=== PATIENT | female | born 1955 | race Caucasian/White ===

== ENCOUNTER 2024-01-06 03:46 | Emergency (ER) | payer MEDICARE, SELFPAY ==
--- NOTE | ~2024-01-06 | XR_ITS ---
Portable chest x-ray Comparison: None Clinical History: Hemoptysis Findings: Lungs are clear, without focal consolidation or definite pleural effusion. Cardiomediasti nal silhouette is prominent. Bones and soft tissues are unremarkable. Impression: Clear lungs. Reviewed, dictated and finalized at location . Impression: Clear lungs.
[2024-01-06 03:47] VITALS: BP 153/93; PULSE 85; RESP 16; TEMP 36.9; O2SAT 99
--- NOTE | 2024-01-06 04:04 | ED.GENADULT ---
HPI - General Adult General Chief complaint: Unspecified Stated complaint: coughing up blood Time Seen by Provider: 01/06/24 03:52 History of Present Illness HPI narrative: this is a 69-year-old female presenting with chief complaint of coughing up blood. Patient has had cough congestion sore throat for the last 2 days. This morning she woke up with mucus in her throat. When she was able to cough it up it was red. Patient came to hospital for evaluation. Patient denies chest pain or difficulty breathing. No lower extremity edema or history of blood clots. No known malignancy. No fever chills nausea vomiting or diarrhea. Related Data Home Medications Medication Instructions Recorded Confirmed No Home Medications 09/01/19 09/01/19 Allergies Allergy/AdvReac Type Severity Reaction Status Date / Time No Known Allergies Allergy Mild Unverified 12/19/10 08:12 [facility] Past Medical History Medical History Anxiety CAD (coronary artery disease) HTN (hypertension) Exam Narrative: APPEARANCE: well-appearing Head: mild erythema posterior oropharynx, no signs of bleeding EYES: EOMI, NOSE: Atraumatic NECK: Trachea midline RESPIRATORY: No increased rate of breathing , CTAB CARDIOVASCULAR: RRR, no peripheral edema ABDOMINAL: Non-distended MUSCULOSKELETAl: No obvious deformities NEURO: Alert. Moving 4/4 extremities SKIN:: Warm, dry. Normal color PSYCHIATRIC: Normal affect Course Vital Signs Vital signs: Vital Signs Temperature 98.4 F 01/06/24 03:47 Pulse Rate 85 01/06/24 03:47 Respiratory Rate 16 01/06/24 03:47 Blood Pressure 153/93 H 01/06/24 03:47 Pulse Oximetry 99 01/06/24 03:47 Oxygen Delivery Room Air 01/06/24 03:47 Temperature 98.4 F 01/06/24 03:47 Pulse Rate 77 01/06/24 04:19 Respiratory Rate 15 01/06/24 04:19 Blood Pressure 155/74 H 01/06/24 04:19 Pulse Oximetry 98 01/06/24 04:19 Oxygen Delivery Room Air 01/06/24 03:47 Medical Decision Making [facility] Narrative Medical decision making narrative: -Course: 69-year-old female presenting with hemoptysis. workup negative including troponin D-dimer and BNP, EKG. patient has not had any more hemoptysis while in the emergency department. on re-evaluation vital signs are stable and she is well appearing with no exam findings. hemoptysis is likely from her sinus congestion /pharyngitis/bronchitis. Patient will be discharged with primary care follow-up -DDX includes but is not limited to: Bronchitis, pulmonary embolism pneumonia, strep throat, -Co-morbidities complicating care: CAD, hypertension -Independent interpretation of studies: CBC normal. BMP normal. Troponin undetectable. D-dimer 0.44, BNP 292, viral swabs strep negative chest x-ray showed atelectasis in the right lower lobe. No fever/white count to indicate pna. Independent EKG interpretation: Rhythm [sinus], Rate [70], [place] -[normal], [place] -[normal], QRS [narrow], QTC [normal], T waves -[negative for concerning inversions], ST Segments - [Negative for concerning elevations] Final interpretations: [Normal Sinus Rhythm] -Shared decision making / Disposition: discharged w/ primary care Vital Signs Vital Signs: Vital Signs Temperature 98.4 F 01/06/24 03:47 Pulse Rate 85 01/06/24 03:47 Respiratory Rate 16 01/06/24 03:47 Blood Pressure 153/93 H 01/06/24 03:47 Pulse Oximetry 99 01/06/24 03:47 Oxygen Delivery Room Air 01/06/24 03:47 Temperature 98.4 F 01/06/24 03:47 Pulse Rate 77 01/06/24 04:19 Respiratory Rate 15 01/06/24 04:19 Blood Pressure 155/74 H 01/06/24 04:19 Pulse Oximetry 98 01/06/24 04:19 Oxygen Delivery Room Air 01/06/24 03:47 Lab Data 01/06/24 04:17 01/06/24 04:46 Labs: Lab Results 01/06/24 01/06/24 01/06/24 Range/Units 04:17 04:23 04:45 WBC 6.1 (4.5-10.0) K/mm3 RBC 4.20 (4.2-5.4)
--- NOTE | 2024-01-06 04:08 | ECG_ITS ---
Measurements Intervals [place] Rate: 70 P: 60 LA: 168 QRS: 37 QRSD: 88 T: 27 QT: 395 QTc: 427 Interpretive Statements SINUS RHYTHM LOW QRS VOLTAGE IN PRECORDIAL LEADS BASELINE ARTIFACT- I, II, III, AVR BORDERLINE ECG NO PREVIOUS ECG AVAILABLE FOR COMPARISON Electronically Signed On 01-06-2024 6:37:05 CDT by Trung Monaco D.O.
[2024-01-06 04:19] VITALS: BP 155/74; PULSE 77; RESP 15; O2SAT 98
[2024-01-06 04:44] LABS: Basophils Percent Auto 0.5 % (0.2-1.2); Eosinophils Absolute Auto 0.3 K/mm3 (0-0.3); Eosinophils Percent Auto 4.6 % (0-4.4); Hematocrit 37.6 % (37.0-47.0); Hemoglobin 12.1 g/dL (12.0-15.0); Immature Granulocyte Absolute 0.04 K/mm3 (0.00-0.031); Immature Granulocyte Percent A 0.7 % (0-0.5); Lymphocytes Absolute Auto 1.71 K/mm3 (0.9-3.2); Lymphocytes Percent Auto 27.9 % (18.3-44.2); Mean Corpuscular HGB Conc 32.2 g/dl (32-36); Mean Corpuscular Hemoglobin 28.8 pg (26-34); Mean Corpuscular Volume 89.5 fl (80-100); Mean Platelet Volume 9.7 fl (7.4-10.4); Monocytes Absolute Auto 0.6 K/mm3 (0.1-0.6); Monocytes Percent Auto 9.8 % (2.6-8.5); Neutrophils Absolute Auto 3.5 K/mm3 (1.3-6.7); Neutrophils Percent Auto 56.5 % (45.5-73.1); Platelet Count Result 316 k/mm3 (150-375); Red Cell Distribution Width 13.4 % (11.5-14.5); White Blood Count 6.1 K/mm3 (4.5-10.0)
[2024-01-06 04:53] LABS: Strep Group A RT-PCR NOT DETECTED (Negative)
[2024-01-06 05:04] LABS: Influenza A QL RT-PCR Negative (Negative); Influenza B QL RT-PCR Negative (Negative); RSV RNA, RT-PCR Negative (Negative); SARS-CoV-2 RNA PCR Negative (Negative)
[2024-01-06 05:09] LABS: D Dimer 0.44 ug/mL (<0.48)
[2024-01-06 05:11] LABS: Alanine Aminotransferase 21 U/L (6-35); Albumin Level 4.1 g/dL (3.5-5.1); Alkaline Phosphatase 85 U/L (38-126); Anion Gap 4 mmol/L (8-16); Aspartate Amino Transferase 28 U/L (14-36); Bilirubin,Total 0.4 mg/dL (0.2-1.3); Blood Urea Nitrogen 18 mg/dL (7-17); Calcium 8.9 mg/dL (8.4-10.2); Carbon Dioxide 26 mmol/L (22-30); Chloride 105 mmol/L (98-107); Estimated CRCL calculation 104 ml/min; Estimated Glomerular Filt Rate > 60; Glucose 101 mg/dL (65-110); Sodium 135 mmol/L (137-145)
[2024-01-06 05:20] LABS: NT Pro B Type Natriuretic Pept 292 pg/mL (19.9-100)
[2024-01-06 05:23] LABS: Troponin I < 0.012 ng/mL (0.000-0.034)
[2024-01-06 06:00] VITALS: BP 149/66; PULSE 67; RESP 16; O2SAT 98
== END 2024-01-06 06:00 | disposition home or self-care (01) ==
PROVIDERS: Emergency Provider Emergency Medicine; PCP Physician Assistant
DX: B34.9 Viral infection, unspecified (principal); R04.2 Hemoptysis; Z20.822 Contact with and (suspected) exposure to COVID-19; I25.10 Atherosclerotic heart disease of native coronary artery without angina pectoris; I10 Essential (primary) hypertension; R94.31 Abnormal electrocardiogram [ECG] [EKG]
CPT/HCPCS: 36415; 71045; 80053; 83880; 84484; 85025; 85380; 87637; 87651; 93005; 99284

== ENCOUNTER 2024-01-07 09:30 | Emergency (ER) | payer MEDICARE, SELFPAY ==
--- NOTE | ~2024-01-07 | CT_ITS ---
Clinical Indication: Cough, hemoptysis CT Scan of the Chest with Contrast: Technique: Contiguous sections were acquired throughout the chest after intravenous administration of 100 cc of Omnipaque 350. Dose reduction technique was used on this scan by utilizing automated expos ure control and iterative reconstruction technique. The dose-length product (DLP) was 793.47 mGy-cm. Findings: Thyroid gland probably diffusely enlarged but homogeneous. There is no evidence of any significant mediastinal, hilar or axillary lymphadenopathy. There is no f illing defect in the pulmonary arterial tree to suggest pulmonary embolus. There is no evidence of ao rtic dissection or aneurysm. There is no evidence of pleural or pericardial effusion. There is minimal patchy ground glass opacity anteromedial left upper lobe. Images through the upper abdomen reveal no abnormalities. Impression: No evidence of pulmonary embolus, aortic dissection, or aortic aneurysm. Minimal patchy ground glass opacity anteromedial left upper lobe. Focal pneumonia is a consideration. Probable enlarged, homogeneous thyroid gland. Correlate with thyroid function tests as indicated. Reviewed, dictated and finalized at [facility]. Impression: No evidence of pulmonary embolus, aortic dissection, or aortic aneurysm. Minimal patchy ground glass opacity anteromedial left upper lobe. Focal pneumon ia is a consideration. Probable enlarged, homogeneous thyroid gland. Correlate with thyroid function t ests as indicated.
[2024-01-07 09:34] VITALS: BP 181/85; PULSE 94; RESP 18; TEMP 36.3; O2SAT 99
[2024-01-07 11:30] VITALS: BP 145/64; PULSE 68; RESP 22; O2SAT 99
--- NOTE | 2024-01-07 11:32 | ECG_ITS ---
Measurements Intervals [place] Rate: 68 P: 60 LA: 163 QRS: 38 QRSD: 91 T: 26 QT: 388 QTc: 413 Interpretive Statements SINUS RHYTHM WITH SINUS ARRHYTHMIA LOW QRS VOLTAGE IN PRECORDIAL LEADS BASELINE ARTIFACT- I, II, AVR, AVL, V1, V4, V6 BORDERLINE ECG COMPARED TO ECG 01/06/2024 04:23:24 SINUS ARRHYTHMIA NOW PRESENT Electronically Signed On 01-07-2024 11:59:55 CDT by Trung Monaco D.O.
--- NOTE | 2024-01-07 11:53 | ED.GENADULT ---
HPI - General Adult General Chief complaint: Nausea/Vomiting/Diarrhea Stated complaint: throwing up blood Time Seen by Provider: 01/07/24 09:40 Source: patient and old records reviewed Mode of arrival: ambulatory Limitations: no limitations History of Present Illness HPI narrative: Patient is a 69-year-old female who presents the ED with report of hemoptysis. Patient reports she has had a deep cough for the last few weeks. Yesterday she developed hemoptysis and was seen in the ED. workup was fairly unremarkable. Troponin and D-dimer were within normal limits. Viral swabs were negative. Chest x-ray was negative. Patient then developed a more significant episode of hemoptysis this morning, which prompted her presentation. She denies chest pain. She denies shortness of breath. Denies dyspnea with exertion. Denies lower extremity pain or swelling. Denies dizziness or lightheadedness. She is not on any blood thinners. Related Data Allergies Allergy/AdvReac Type Severity Reaction Status Date / Time No Known Allergies Allergy Mild Verified 01/07/24 09:31 Review of Systems Review of Systems: CONSTITUTIONAL: Denies fever, chills, or sweats. CARDIOVASCULAR: Denies chest pain, palpitations, or edema. RESPIRATORY: See HPI. GASTROINTESTINAL: Denies abdominal pain, nausea, vomiting. NEUROLOGIC: Denies lightheadedness, dizziness, numbness, or weakness. All systems reviewed & are unremarkable except as noted in HPI and below PMFSH Past Medical History Medical History Anxiety CAD (coronary artery disease) HTN (hypertension) Exam Narrative: GENERAL: Well appearing, morbidly obese with BMI of 47.7, non-toxic, in no acute distress. HEAD: Normocephalic, atraumatic. RESPIRATORY: Airway patent, respirations nonlabored. Clear to auscultation bilaterally, no rales, rhonchi, wheezing. no focal lung sounds. CARDIOVASCULAR: Regular rate and rhythm without murmurs, rubs, or gallops. MUSCULOSKELETAL: Moves all extremities. No gross deformities. SKIN: Warm, dry, normal color. NEURO: A&O X3. Speech clear. Cranial nerves II-XII grossly intact. Steady gait. No ataxic movements. PSYCHIATRIC: Appropriate mood and affect. Normal interaction. Course Vital Signs Vital signs: Vital Signs Temperature 97.4 F L 01/07/24 09:34 Pulse Rate 94 01/07/24 09:34 Respiratory Rate 18 01/07/24 09:34 Blood Pressure 181/85 H 01/07/24 09:34 Pulse Oximetry 99 01/07/24 09:34 Oxygen Delivery Room Air 01/07/24 09:34 Temperature 97.4 F L 01/07/24 09:34 Pulse Rate 75 01/07/24 12:00 Respiratory Rate 15 01/07/24 12:00 Blood Pressure 154/88 H 01/07/24 12:00 Pulse Oximetry 100 01/07/24 12:00 Oxygen Delivery Room Air 01/07/24 09:34 Medical Decision Making MDM Narrative Medical decision making narrative: patient presented to ED with recurrent episode of hemoptysis, evaluated in the ED yesterday with essentially negative workup. Vital signs are stable today. Oxygen stable on room air. Patient in no acute distress. laboratory studies unremarkable. No leukocytosis. Stable H& H. Electrolytes within normal limits. Troponin undetectable. BNP minimally elevated at 244. Patient does not appear fluid overloaded. CTA of chest obtained and showing foci of pneumonia in left upper lobe. No evidence of PE or aortic etiology. I feel this does fit with patient's clinical picture and can explain hemoptysis. discussed imaging findings with patient, discharged home on oral antibiotics. She is in agreement with this plan and feels comfortable w/ discharge home. I advised close follow-up with PCP for further evaluation. Given strict return precautions. She agrees with plan. Discharged in stable condition. Vital stable at time of D/C. Medical Records Medical records reviewed: Yes I reviewed the external patient's medical records. Vital Signs Vital Signs:
[2024-01-07 11:54] LABS: Basophils Percent Auto 0.5 % (0.2-1.2); Eosinophils Absolute Auto 0.2 K/mm3 (0-0.3); Eosinophils Percent Auto 3.7 % (0-4.4); Hematocrit 41.3 % (37.0-47.0); Hemoglobin 13.2 g/dL (12.0-15.0); Immature Granulocyte Absolute 0.02 K/mm3 (0.00-0.031); Immature Granulocyte Percent A 0.3 % (0-0.5); Lymphocytes Absolute Auto 1.66 K/mm3 (0.9-3.2); Lymphocytes Percent Auto 26.6 % (18.3-44.2); Mean Corpuscular Hemoglobin 28.9 pg (26-34); Mean Corpuscular Volume 90.6 fl (80-100); Mean Platelet Volume 10.2 fl (7.4-10.4); Monocytes Absolute Auto 0.5 K/mm3 (0.1-0.6); Monocytes Percent Auto 8.6 % (2.6-8.5); Neutrophils Absolute Auto 3.8 K/mm3 (1.3-6.7); Neutrophils Percent Auto 60.3 % (45.5-73.1); Platelet Count Result 340 k/mm3 (150-375); Red Blood Count 4.56 M/mm3 (4.2-5.4); Red Cell Distribution Width 13.5 % (11.5-14.5); White Blood Count 6.3 K/mm3 (4.5-10.0)
[2024-01-07 12:00] VITALS: BP 154/88; PULSE 75; RESP 15; O2SAT 100
[2024-01-07 12:06] LABS: Alanine Aminotransferase 23 U/L (6-35); Albumin Level 4.6 g/dL (3.5-5.1); Alkaline Phosphatase 85 U/L (38-126); Anion Gap 6 mmol/L (8-16); Aspartate Amino Transferase 33 U/L (14-36); Bilirubin,Total 0.5 mg/dL (0.2-1.3); Blood Urea Nitrogen 14 mg/dL (7-17); Calcium 9.6 mg/dL (8.4-10.2); Carbon Dioxide 26 mmol/L (22-30); Chloride 104 mmol/L (98-107); Estimated CRCL calculation 104 ml/min; Estimated Glomerular Filt Rate > 60; Glucose 92 mg/dL (65-110); Potassium 4.1 mmol/L (3.4-5.0); Sodium 136 mmol/L (137-145)
[2024-01-07 12:18] LABS: NT Pro B Type Natriuretic Pept 244 pg/mL (19.9-100); Troponin I < 0.012 ng/mL (0.000-0.034)
[2024-01-07 12:48] LABS: INR 0.9; Prothrombin Time 12.8 Seconds (11.1-14.7)
[2024-01-07 12:57] LABS: Partial Thromboplastin Time 28.6 Seconds (22.3-36.8)
== END 2024-01-07 13:38 | disposition home or self-care (01) ==
PROVIDERS: Emergency Provider Physician Assistant; PCP Physician Assistant
DX: J18.9 Pneumonia, unspecified organism (principal); R04.2 Hemoptysis; I25.10 Atherosclerotic heart disease of native coronary artery without angina pectoris; I10 Essential (primary) hypertension; R94.31 Abnormal electrocardiogram [ECG] [EKG]
CPT/HCPCS: 36415; 71275; 80053; 83880; 84484; 85025; 85610; 85730; 93005; 99284; Q9967

== ENCOUNTER 2025-05-29 13:42 | Emergency (ER) | payer MEDICARE, SELFPAY ==
--- NOTE | ~2025-05-29 | CT_ITS ---
EXAMINATION: CT brain wo con DATE: 05/29/2025 14:10 INDICATION: Severe headache TECHNIQUE: Computed tomography (CT) of the head was performed without intravenous contrast. Sagittal and coronal reconstructions were performed. The mA was adjusted according to patient size. Iterative reconstruction technique was employed. The dose-length product was 605.33 mGy-cm. COMPARISON: None FINDINGS: No acute intracranial hemorrhage, acute infarction or abnormal extra axial fluid collection. There is mild scattered white matter hypoattenuation consistent with chronic small vessel ischemic disease. Ventricles are normal and symmetric. No mass/mass effect. Changes of bilateral intraocular lens repla cement. The orbits and mastoid air cells are normal. Mild mucoperiosteal thickening the bilateral eth moid sinuses IMPRESSION: 1. Normal aging brain. No acute intracranial process. Reviewed, dictated and finalized at location A.
[2025-05-29 13:49] VITALS: BP 186/75; PULSE 77; RESP 16; TEMP 36.4; O2SAT 98
--- OUTSIDE RECORDS SUMMARY | 2025-05-29 14:03 | XMS_ITS | Clinical Summary ---
Author Organization [facility] Address [address] [place] [address] Care Team Providers Care Renal Medicine Specialist Name Role Phone Corrine Aguilar Primary Care Pr ovider Allergies No known active allergies Medications diphenoxylate-a tropine (LOMOTIL) 2.5-0.025 mg per tabletIndicatio ns:diarrhea Take 1 tablet by mouth 4 (four) times a day as needed for diarrhea 30 tablet 9 Active escitalopram (LEXAPRO) 20 mg tablet Take 10 mg by mouth daily Active ALPRAZolam (XANAX) 0.5 mg tablet Take 0.5 mg by mouth 2 (two) times a day as needed for anxiety Active aspirin 81 mg chewable tablet Take 1 tablet (81 mg total) by mouth daily 30 tablet 2 Active atorvastatin (LIPITOR) 80 mg tablet Take 1 tablet (80 mg total) by mouth daily 30 tablet 2 Active Additional Information Patient taking differently:80 mg oral Daily,Pt is taking 40 mg every other day, Reported on 06/17/2022 nitroglycerin (NITROSTAT) 0.[address] 1 tablet (0.4 mg total) under the tongue every 5 (five) minutes as needed for chest pain 30 tablet 2 Active ticagrelor (BRILINTA) 90 mg tablet Take 1 tablet (90 mg total) by mouth 2 (two) times a day 60 tablet [address] (PROTONIX) 40 mg EC tablet Take 1 tablet (40 mg total) by mouth daily 30 tablet 2 Active sacubitriL-vals jesus (ENTRESTO) 24-26 mg tabletIndicatio ns:chronic heart failure Take 1 tablet by mouth 2 (two) times a day 180 tablet 3 2 Active carvediloL (COREG) 6.25 mg tablet Take 1 tablet (6.25 mg total) by mouth 2 (two) times a day with meals 180 tablet 3 2 Active predniSONE (DELTASONE) 10 mg tablet Take 5 tabs (50mg) daily for 2 days, then take 4 tabs (40mg) daily for 2 days. Continue to decrease by 1 tab (10mg) every 2 days until gone. 30 tablet 3 Active Active Problems Problem Noted Date Diagnosed Date Status post insertion of tila g-eluting stent into left anterior descending (LAD) artery 06/17/2022 Encounter for monitoring antiplatelet therapy Ischemic cardiomyopathy 06/17/2022 Other chest pain 05/06/2022 Morbid obesity with BMI of 45.0-49.9, adult 04/17 Anxiety 05/04/2022 Assessment & Plan (05/05/2022 1:24 AM CDT): Continue PRN xanax NSTEMI (non-ST elevated myocardial infarction) 0 05/04/2022 Assessment & Plan (05/05/2022 1:43 AM CDT): Cards has seen patient. She has PRN SL [facility]TG[facility] ordered. Will screen for covid. Continue lovenox. Will give 1L IVF throughout the night in preparation for LHC. Hypoxia Elevated troponin Surgical History Surgery Date Site/Laterality Comments ELBOW SURGERY Right Medical History Medical History Date Comments Hx Other Medical broken elbow 07 Anxiety Hypertension Family History Medical History Relation Name Comments Arthritis Other 1 Family history of Arthritis; Hypertension Other 2 Family history of Hypertension; Stroke Other 3 Family history of Stroke; Heart disease Other 4 Family history of Heart problems; Relation Name Status Comments Other 1 Other 2 Other 3 Other 4 Social History Tobacco Use Types Packs/Day Years Used Date Smoking Tobacco: Never Alcohol Use Standard Drinks/Week Comments Never 0 (1 standard drink = 0.6 oz pur e alcohol) AUDIT-C Answer Date Recorded Q1: How often do you have a drink containing alc ohol? Monthly or less 05/04/2022 Average Number of Drinks Not on file 022 Q3: How often do you have si x or more drinks on one occasion? 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 Gender Identity Not on file Sexual Orientation Not on file Obstetrics History Last Filed Vital Signs Vital Sign Reading Time Taken Comments Blood Pressure 134/79 01/22/2023 10:55 AM CDT Pulse 88 01/22/2023 10:55 AM CDT Temperature 36.7 C (98.1 F) 01/22/2023 10:55 AM CDT Respiratory Rate 16 01/22/2023 10:5 5 AM CDT Oxygen Saturation 97% 01/22/2023 10: 55 AM CDT Inhaled Oxygen Concentration - - Weight 127.2 kg (280 lb 6.4 oz) 023 10:55 AM CDT Height 167.6 cm (5' 5.98) 01/22/2023 1 0:55 AM CDT Body Mass Index 45.28 01/22/2023 10:55 AM CDT Plan of Treatment Health Maintenance Due Date Last Done Comments Breast Cancer Screening-Mammogram 1954 Colon Cancer Screening-Colonoscopy 1955 Depression Screening 1954 Hepatitis C Screening 1955 Osteoporosis Screening-Bone Density Scan 1954 Hepatitis B Screening 01/03/1972 Pneumococcal vaccine 65+ (1 of 1 - PCV) 01/03/2004 Zoster Vaccine (1 of 2) 01/03/2004 Well Visit 65+ 2019 Fall Risk Assessment 05/06/2023 05/06/2022 DTaP/Tdap/Td Vaccine (2 - Td or Tdap) 05/31/2025 Influenza Vaccine (#1) 2025 8, 08/15/2016, 08/16/2015 Medical Devices Implanted Type Area Hydrate Thickener Operator Device Identifier Shelf Expiration Date Model / Serial / Lot [employer] Luis Synergy 3.5mm 24mm 144cm Radiopaque 1 Access Port Inflation Lumen [id number] - [id number] Implanted:Qty: 1 on 05/05/2022 by Alanna Cabello MD at [facility] [employer] [facility] 01/23/2023 [id number] 350 / / [id number] [facility] [employer] [facility] Angio-Seal Vip 6fr Closere Device [id number] - [id number] Implanted:Qty: 1 on 05/05/2022 by Alanna Cabello MD at [facility] [employer] [facility] 02/14/2023 [id number] / / [id number] Insurance AETNA MEDICARE AETNA MEDICARE AETNA MEDICARE Advance Directives For more information, please contact: [phone] * Full Code (Latest Code Status on File) Date Activated Date Inactivated Comments 05/04/2022 4:38 PM 05/06/2022 6:31 PM Care Teams Renal Medicine Specialist Relationship Specialty Start Date End Date Corrine Aguilar PA PCP - General 05/11/22
[2025-05-29 14:35] VITALS: BP 191/97; PULSE 72; RESP 17; TEMP 36.4; O2SAT 97
[2025-05-29 14:38] VITALS: BP 191/97; PULSE 72; RESP 17; TEMP 36.4; O2SAT 97
--- NOTE | 2025-05-29 14:47 | ED_ITS ---
HPI - General Adult General Chief complaint: Headache Stated complaint: Headaches for past week. Cardiac cath 05/14 Time Seen by Provider: 05/29/25 14:36 History of Present Illness HPI narrative: 70-year-old female presents to the emergency department for evaluation for increased headache. Patient reports she does have a sick family member and has been undergoing a lot of stress. Patient did have a recent cardiac catheterization on May 14 that was negative. She states she has had worsening headache. Patient was at her primary care physician was treated with some Xanax for anxiety. Upon arrival emergency department patient was hypertensive but states states this is more elevated than normal and patient does have white coat syndrome. Related Data Allergies Allergy/AdvReac Type Severity Reaction Status Date / Time No Known Allergies Allergy Mild Verified 05/29/25 14:39 Review of Systems Review of Systems: All systems reviewed & are unremarkable except as noted in HPI and below PMFSH Past Medical History Medical History Anxiety CAD (coronary artery disease) HTN (hypertension) Exam Narrative: APPEARANCE: Emotionally distressed HEAD: normocephalic, atraumatic. EYES: PERRLA/EOMI, conjunctivae clear. NOSE: Normal no drainage EARS:TMS clear with good light reflex. THROAT: Pharynx clear, no exudate. NECK: Supple. No adenopathy, no masses. RESPIRATORY: Airway patent, respirations nonlabored. Clear to auscultation bilaterally, no rales, rhonchi, wheezing. CARDIOVASCULAR: Regular rate and rhythm without murmurs rubs or gallops. ABDOMINAL: Soft, nontender, nondistended, normal bowel sounds MUSCULOSKELETAL: Moves all extremities. Strength/ROM intact, No edema, No calf tenderness. NEURO: Alert. Cranial nerves II through XII intact. Good gait. Good coordination SKIN: Warm, dry. Normal Color PSYCHIATRIC: Tearful affect Course Vital Signs Vital signs: Vital Signs Temperature 97.5 F L 05/29/25 13:49 Pulse Rate 77 05/29/25 13:49 Respiratory Rate 16 05/29/25 13:49 Blood Pressure 186/75 H 05/29/25 13:49 Pulse Oximetry 98 05/29/25 13:49 Temperature 97.5 F L 05/29/25 14:38 Pulse Rate 75 05/29/25 15:13 Respiratory Rate 18 05/29/25 15:13 Blood Pressure 165/82 H 05/29/25 15:13 Pulse Oximetry 97 05/29/25 15:13 Oxygen Delivery Room Air 05/29/25 14:35 Medical Decision Making MDM Narrative Medical decision making narrative: 70-year-old female present to the emergency department for evaluation for headache. Patient declined any labs declined any medications for blood pressure control. Patient's blood pressure did begin to improve with just resting. Patient's head CT was negative. Patient only wanted to know the results of the head CT and patient is requesting to be discharged home. Patient is well appearing at time of discharge. Differential Diagnosis Differential Diagnosis: Hypertension, subarachnoid hemorrhage, subdural hematoma Vital Signs Vital Signs: Vital Signs Temperature 97.5 F L 05/29/25 13:49 Pulse Rate 77 05/29/25 13:49 Respiratory Rate 16 05/29/25 13:49 Blood Pressure 186/75 H 05/29/25 13:49 Pulse Oximetry 98 05/29/25 13:49 Temperature 97.5 F L 05/29/25 14:38 Pulse Rate 75 05/29/25 15:13 Respiratory Rate 18 05/29/25 15:13 Blood Pressure 165/82 H 05/29/25 15:13 Pulse Oximetry 97 05/29/25 15:13 Oxygen Delivery Room Air 05/29/25 14:35 Imaging Data Radiologist's impression: Impressions Head CT 05/29/25 14:11 IMPRESSION: 1. Normal aging brain. No acute intracranial process. Discharge Plan Discharge Clinical Impression: HTN (hypertension), Headache Patient Disposition: Home Condition: Stable Instructions: Antibiotic Form Additional Instructions: You declined any medications for your blood pressure or for your headache. You declined labs. Your head CT was negative. If you have any worsening symptoms then please call or return to the emergency department. Patient Language: Tamazight Prescriptions: No Action doxycycline monohydrate 100 mg tablet 100 mg PO BID 7 Days Qty: 14 0RF amoxicillin-pot clavulanate 875-125 mg tablet 1 tablet PO Q12H 7 Days Qty: 14 0RF Follow-up/Referrals: Jeff,CALVIN Castle [Primary Care Provider] -
--- NOTE | 2025-05-29 15:01 | PC.NURSE ---
Pt refusing to have lab work done and refusing ordered medications. Attempted to educate pt on importance of ordered labs and medications, pt still refusing. EDP Dr. Rivera made aware
--- OUTSIDE RECORDS SUMMARY | 2025-05-29 15:09 | XMS_ITS | Clinical Summary ---
Author Organization [facility] Address [address] [place] [address] Care Team Providers Care Special Education Secretary Name Role Phone Corrine Aguilar Primary Care [...] She has PRN SL NTG. NPO at [facility] for cath. ECHO ordered. 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 Gender Identity Not on file Sexual Orientation [...] 08/15/2016, 08/16/2015 Medical Devices Implanted Type Area Embroidery Worker Device Identifier Shelf Expiration Date Model / Serial / Lot [employer] Luis Synergy 3.5mm 24mm 144cm Radiopaque 1 Access Port Inflation Lumen [id number] - [id number] Implanted:Qty: 1 on 05/05/2022 by Alanna Cabello MD at [facility] [employer] [facility] 01/23/2023 [id number] 350 / / [id number] [employer] [facility] Angio-Seal Vip 6fr Closere Device [id number] - [id number] Implanted:Qty: 1 on 05/05/2022 by Alanna Cabello MD at [facility] [employer] [facility] 02/14/2023 [id number] / / [id number] Insurance AETNA MEDICARE AETNA MEDICARE [employer] Address: [facility] [address] [place] [address] AETNA MEDICARE Advance Directives For more information, please contact: [phone] * Full Code (Latest Code Status on File) Date Activated Date Inactivated Comments 05/04/2022 4:38 PM 05/06/2022 6:31 PM Care Teams Special Education Secretary Relationship Specialty Start Date End Date Corrine Aguilar PA PCP - General 05/11/22
[2025-05-29 15:13] VITALS: BP 165/82; PULSE 75; RESP 18; O2SAT 97
== END 2025-05-29 15:15 | disposition home or self-care (01) ==
PROVIDERS: Emergency Provider Emergency Medicine; PCP Physician Assistant
DX: I10 Essential (primary) hypertension (principal); R51.9 Headache, unspecified; F41.9 Anxiety disorder, unspecified; I25.10 Atherosclerotic heart disease of native coronary artery without angina pectoris; Z79.899 Other long term (current) drug therapy
CPT/HCPCS: 70450; 99284